=== PATIENT | female | born 1955 | race Caucasian/White ===

== ENCOUNTER 2022-08-15 08:18 | Observation (INO) ==
--- NOTE | 2022-07-24 09:14 | PAT Medication Instructions ---
Medication Instructions Date of Service July 24, 2022 Home Medications alprazolam 1 mg tablet (Xanax) 0.75 mg PO HS amlodipine 2.5 mg tablet 2.5 mg PO QAM aspirin 81 mg tablet,delayed release 81 mg PO QAM duloxetine 60 mg capsule,delayed release 60 mg PO QAM hydrocodone 10 mg-acetaminophen 325 mg tablet 1 tab PO HS PRN Pain meloxicam 15 mg tablet 15 mg PO QAM qftxauoucrpe-kmhnwvui-tesvgs tablet 1 tab PO QAM rosuvastatin 10 mg tablet 10 mg PO QAM turmeric 400 mg capsule 400 mg PO QAM valsartan 160 mg-hydrochlorothiazide 12.5 mg tablet 1 tab PO QAM vitamin E 1 dose PO QAM ASK your surgeon for instructions meloxicam 15 mg tablet 15 mg PO QAM STOP taking 2 weeks before surgery (or as soon as possible if surgery is within 2 weeks) turmeric 400 mg capsule 400 mg PO QAM vitamin E 1 dose PO QAM daeqxcqovjxh-hydczruc-hkzjhq tablet 1 tab PO QAM DO NOT take the morning of surgery valsartan 160 mg-hydrochlorothiazide 12.5 mg tablet 1 tab PO QAM Take morning of surgery With a small sip of water, OTHERWISE NOTHING TO EAT OR DRINK AFTER MIDNIGHT: amlodipine 2.5 mg tablet 2.5 mg PO QAM aspirin 81 mg tablet,delayed release 81 mg PO QAM duloxetine 60 mg capsule,delayed release 60 mg PO QAM (continue as normal unless told otherwise by surgeon) rosuvastatin 10 mg tablet 10 mg PO QAM Take evening before surgery alprazolam 1 mg tablet (Xanax) 0.75 mg PO HS hydrocodone 10 mg-acetaminophen 325 mg tablet 1 tab PO HS PRN Pain (if needed) Other Notes If you have any questions please call us at [phone] or [phone] or [phone] or [phone]
--- NOTE | 2022-07-26 14:46 | Anesthesiology Consultation ---
Date of Service July 26, 2022 Assessment & Plan (1) Encounter for pre-operative examination: - COVID screening: Per assessment on 07/26: No known COVID-19 positive contacts or current COVID-19 related symptoms. Travel screen negative. Patient vaccinated. At surgeon discretion if preop Covid testing being done. - Outpatient joint assessment: Pt currently scheduled for inpatient pathway. If surgeon requests review for outpatient joint pathway, patient is acceptable candidate for outpatient joint program from anesthesia standpoint. - Cardiology office visit (06/26/22): "Patient presents today for preoperative risk evaluation for scheduled left total knee replacement at [facility] for August 15, [address] Nunn. Patient with RCRI class 1 risk with 0.4% risk of MACE. Patient is unable to exert herself more than 4 Mets of activity. Is able to get up 1 flight of steps however causes shortness of breath for patient. Patient with atypical chest discomforts that are new over the last month. BP controlled.. Echocardiogram December 2020 with LVEF 60-64% with no wall motion abnormalities. No gross murmurs auscultated and patient is euvolemic on examination.. Patient had Lexiscan in 2020 due to shortness of breath, with no inducible ischemia noted, however patient is with now new chest discomfort in the last month or so. obutamine on back order.. Will proceed with a Lexiscan stress test for preoperative risk evaluation due to new chest discomforts and risk factors.. Return as scheduled in November, sooner if any needs arise and pending stress test results." Unremarkable stress test done 07/10/22* - Patient acceptable risk for surgery pending surgeon-ordered PCP preop evaluation (Dr. Uriel Menjivar, appt 07/30). Chart Review Chart Review: Patient seen in Pre Admission Testing Teaching & Discussion Pre-Anesthesia Teaching/Discussion Notes: Instructed NPO after midnight before surgery,except medications with 15 cc of water. Medication instructions provided according to the PAT guidelines. History Surgery Operation Date: 08/15/22 10:50 Proposed Procedures p Left Total Knee Arthroplasty - Douglas Nunn MD Height/Weight Height: 5 ft 8 in Weight: 97.7 kg Allergies Allergy/AdvReac Type Severity Reaction Status Date / Time No Known Allergies Allergy Verified 07/23/22 11:48 Medications Home Medications Medication Instructions Recorded Confirmed Last Taken alprazolam 1 mg tablet (Xanax) 0.75 mg PO HS 07/23/22 07/23/22 Unknown amlodipine 2.5 mg tablet 2.5 mg PO QAM 07/23/22 07/23/22 Unknown aspirin 81 mg tablet,delayed 81 mg PO QAM 07/23/22 07/23/22 Unknown release duloxetine 60 mg capsule,delayed 60 mg PO QAM 07/23/22 07/23/22 Unknown release hydrocodone 10 mg-acetaminophen 1 tab PO HS PRN Pain 07/23/22 07/23/22 Unknown 325 mg tablet meloxicam 15 mg tablet 15 mg PO QAM 07/23/22 07/23/22 Unknown sglwgeotkjds-rbgwodez-pemrxb tablet 1 tab PO QAM 07/23/22 07/23/22 Unknown rosuvastatin 10 mg tablet 10 mg PO QAM 07/23/22 07/23/22 Unknown turmeric 400 mg capsule 400 mg PO QAM 07/23/22 07/23/22 Unknown valsartan 160 1 tab PO QAM 07/23/22 07/23/22 Unknown mg-hydrochlorothiazide 12.5 mg tablet vitamin E 1 dose PO QAM 07/23/22 07/23/22 Unknown Past Medical History Medical History Anxiety Chronic back pain History of vertigo HLD (hyperlipidemia) HTN (hypertension) Obesity Sleep apnea CPAP (compliant) Spinal stenosis Exercise / Class Metabolic Activity III < 4 Walking/Shop/Light housework (one FS (no CP, + mild SOB)) Past Family History Family History Other No family history of adverse response to anesthesia Past Surgical History Surgical History History of colonoscopy History of foot surgery Rt History of tooth extraction Past Anesthesia History No Hx of Anesthesia Complications and No Family Hx of Anesthesia Complications History of PONV No Hx of PONV and No Hx of Motion Sickness Social History Smoking Status: Never smoker Do You Dip or Chew Tobacco: No Hx Alcohol Use: Yes alcohol intake frequency: holidays/special occasions only Hx Substance Use: No substance use type: does not use Review of Systems Patient denies chest pain, shortness of breath, fever, chills, cough, wheezing, palpitations. Physical Exam Vital Signs VITALS BP 142/79 P 69 TEMP 97.9 SP02 95%RA RESP 16 PHYSICAL Full cervical extension range of motion. Full TMJ range of motion. TMD 3 finger breaths Mallampati Score 2 Dentition: intact Lungs: clear throughout to auscultation Cardiac: regular rate and rhythm, no murmurs noted Spine: normal Carotid arteries: negative bruit Extremities: no edema Lab Results Anesthesia Preop Results Results Anesthesia Widget: WBC 6.30 K/ul (4.8-10.8) 07/26/22 Hgb 14.8 g/dl (12.0-16.0) 07/26/22 Hct 42.9 % (34.1-44.9) 07/26/22 Plt 195 K/uL (130-400) 07/26/22 Na 137 mmol/L (136-145) 07/26/22 K 3.9 mmol/L (3.5-5.1) 07/26/22 Cl 103 mmol/L (98-107) 07/26/22 CO2 27 mmol/L (21-32) 07/26/22 BUN 15 mg/dl (6-23) 07/26/22 Creat 0.66 mg/dl (0.6-1.2) 07/26/22 Glucose Level 91 mg/dl (70-99(Fasting)) 07/26/22 PT 11.1 Seconds (9.0-12.0) 07/26/22 PTT 24.0 Seconds (21.0-31.0) 07/26/22 INR 1.0 (0.9-1.1) 07/26/22 Urine Color Yellow 07/26/22 Urine Appearance Clear (Clear) 07/26/22 Urine pH 5.0 (4.5-7.5) 07/26/22 Urine Specific [place] 1.014 (1.000-1.030) 07/26/22 Urine Protein Negative (Negative) 07/26/22 Urine Glucose (UA) Negative (Negative) 07/26/22 Urine Ketones Negative (Negative) 07/26/22 Urine Blood Negative (Negative) 07/26/22 Urine Nitrite Negative (Negative) 07/26/22 Urine Bilirubin Negative (Negative) 07/26/22 Urine Urobilinogen Negative (Negative) 07/26/22 Urine Leukocyte Esterase Trace (Negative) H 07/26/22 Urine WBC (Auto) 1-5 /hpf (0-5) 07/26/22 Urine RBC (Auto) 0-4 /hpf (0-4) 07/26/22 Urine Hyaline Casts (Auto) 0 /lpf (0-5) 07/26/22 Urine Epithelial Cells (Auto) >30 /lpf (0-5) H 07/26/22 Urine Bacteria (Auto) Negative (Negative) 07/26/22 Blood Type B Positive 07/26/22 Antibody Screen NEGATIVE 07/26/22 Testing Electrocardiogram Date: 05/30/22 NSR at 74bpm. LAD. Chest X-Ray Date: 07/26/22 FINDINGS: There is mild elevation of the right hemidiaphragm. Lungs are clear. There is no pneumothorax or pleural effusion. Moderate cardiomegaly is noted. Mediastinal contours are normal. There is no evidence for pulmonary edema. IMPRESSION: No acute cardiopulmonary findings. Cardiomegaly. Echocardiogram Date: 01/04/21 LVEF 60.9%. No regional motion abnormality. No significant valvular disease. Stress Test Date: 07/10/22 Type: nuclear Lexiscan nuclear cardiac stress test negative for ischemia. LVEF calculated at above 70%. 77% MPHR. COVID-19 Risk Screen Screening Information COVID-19 Screen Date: 07/26/22 Exposure 21 Days Family/Household +COVID Last 21 Days: No Exposure 10 Days Any COVID Exposure Last 10 Days: No Symptoms Last 10 Days Experienced COVID Sx Last 10 Days: No + COVID 0-90 Days COVID + in Last 0-90 Days: No
--- NOTE | 2022-08-07 15:03 | History & Physical Report ---
Date of Service August 07, 2022 Assessment & Plan (1) Left knee DJD: Plan: Postoperative prescriptions for Percocet and Coumadin will be provided at discharge from the hospital. Anticipate discharge to home with home health services. Preoperative visit with her PCP has been scheduled. PDMP was checked and there are no concerning findings. The patient is aware of COVID-19 risks associated with surgery. She is currently asymptomatic of any COVID-19 symptoms. Postoperative followup appointment has been made for 08/30 at 10:30 a.m. for staple removal. Anticipate one night stay in the hospital. She already has a pipeline controller, and walker. She also has a cane. History of Present Illness Chief Complaint: Left knee DJD Primary Care Provider: NO PCP This 67-year-old female presents with her , for her preoperative history and physical. She is scheduled to undergo a left knee total knee arthroplasty o n 08/15/2022. The patient has had a longstanding history of left knee pain. It has been ongoing for years. She did well with viscosupplementation injections for many years. Over the last year, they have not helped. The pain has become worse. She has difficulty with inclines and stairs. Pain is worse with weightbearing. It is affecting her ADLs. She notes grinding in the knee. She has also tried activity modification as well as oral Tylenol and prescription NSAIDs without improvement. No numbness or tingling. She denies any locking. She elects to proceed with surgical intervention in hopes of improving her pain and function. Preoperative imaging has been obtained. Allergies Allergy/AdvReac Type Severity Reaction Status Date / Time No Known Allergies Allergy Verified 07/23/22 11:48 Home Medications Medication Instructions Recorded Confirmed Type alprazolam 1 mg tablet (Xanax) 0.75 mg PO HS 07/23/22 07/23/22 History amlodipine 2.5 mg tablet 2.5 mg PO QAM 07/23/22 07/23/22 History aspirin 81 mg tablet,delayed 81 mg PO QAM 07/23/22 07/23/22 History release duloxetine 60 mg capsule,delayed 60 mg PO QAM 07/23/22 07/23/22 History release hydrocodone 10 mg-acetaminophen 1 tab PO HS PRN Pain 07/23/22 07/23/22 History 325 mg tablet meloxicam 15 mg tablet 15 mg PO QAM 07/23/22 07/23/22 History qyviqnnoubgv-mbrsjloz-tmfcep tablet 1 tab PO QAM 07/23/22 07/23/22 History rosuvastatin 10 mg tablet 10 mg PO QAM 07/23/22 07/23/22 History turmeric 400 mg capsule 400 mg PO QAM 07/23/22 07/23/22 History valsartan 160 1 tab PO QAM 07/23/22 07/23/22 History mg-hydrochlorothiazide 12.5 mg tablet vitamin E 1 dose PO QAM 07/23/22 07/23/22 History Past Med/Surg History Medical History Anxiety Chronic back pain History of vertigo HLD (hyperlipidemia) HTN (hypertension) Obesity Sleep apnea CPAP (compliant) Spinal stenosis Surgical History History of colonoscopy History of foot surgery Rt History of tooth extraction Family History (Updated 08/07/22 @ 15:00 by Prieto Lance PA-C) Mother Heart disease Myocardial infarction Sister Heart disease Myocardial infarction Father Heart disease Grandmother Myocardial infarction Other No family history of adverse response to anesthesia Social History (Updated 08/07/22 @ 14:58 by Prieto Lance PA-C) Smoking Status: Never smoker Second Hand Exposure: No; Hx Alcohol Use: Yes Hx Substance Use: No Preferred Language: Haitian Communication Ability: Effective Collector Required: No Beliefs That Will Affect Care: None marital status: Current Living Situation: Spouse Feels Safe at Home: Yes Assistive Devices: CPAP and Glasses Review of Systems Review of Systems: All systems reviewed & are unremarkable except as noted in HPI & below A total of 10 systems were reviewed. Physical Exam Physical Exam: Vitals: Height 171.6 cm, weight 99 kg, BMI 33.6, temperature 36.4, BP 116/82, pulse 64, respirations 20, and O2 sat 96% on room air. General: Well-developed, well-nourished elderly female in no acute distress. Sitting in a chair. Alert and oriented. Skin: Warm and dry with good turgor. No rashes or lesions. No ecchymosis or erythema. HEENT: Normocephalic, atraumatic. Eyes: PERRLA, EOMI. Nares and oropharynx exams deferred due to COVID precautions. Heart: RRR. No MGR. Lungs: Clear to auscultation bilaterally. No crackles, rhonchi or wheezing. Good air movement. Abdomen: Obese. Bowel sounds present x4. Soft and nontender. No organomegaly. No masses. Musculoskeletal: Left knee evaluation reveals no intra-articular effusion. No redness or warmth. She has full terminal extension. Flexion to greater than 110 degrees. Varus malalignment. Crepitus is palpable with motion. No defect in the patellar tendon or quadriceps tendon. She has medial joint line discomfort with palpation and peripatellar discomfort with palpation. There is also some lateral joint line discomfort, but it is less than the other compartments. Significant stiffness is noted to the patellofemoral joint. Ambulating today with an antalgic gait. Stable collateral ligaments. Neurologic: Gross sensation is intact across both lower extremities by soft touch. Peripheral pulses are 2+. Results & Data Results & Data ([facility]) Diagnostic Findings Radiographic imaging previously obtained shows end-stage DJD of the medial and patellofemoral compartments. Patellofemoral compartment is worst. Periarticular osteophytes, subchondral sclerosis and joint space narrowing are all present. Code Status & VTE Plan VTE Prophylaxis Plan VTE Prophylaxis will be ordered: Yes
[~2022-08-15 08:18] MED LIST: BUPIVACAINE 0.25% 30 ML VIAL ONE; BUPIVACAINE 0.5 % 5 MG/1 ML PF 10ML VIAL ONE; DEXAMETHASONE SOD INJ 4 MG/ML VIAL ONE; EPINEPHrine INJ 1 MG/ML AMP ONE; LR 500ML BOLUS, THEN 15ML/HR IV SCH; LR 60ML/HR IV SCH; ROPIVACAINE 0.5% HCL/PF 150 MG, BUPIVACAINE 0.75% MPF 20 ML, EPINEPHrine 0.15 MG, Ketor... INFIL SCH; TRANEXAMIC ACID 1,000 MG **IV Pre-op IV SCH; ceFAZolin 2000MG 2,000 MG/15 ML SYR IV SCH
--- NOTE | 2022-08-15 08:23 | History & Physical Bridge Note ---
Date of Service August 15, 2022 History & Physical Bridge Note I have examined the patient, reviewed the History & Physical and in the interval since the performance of the History & Physical I have noted the following changes of clinical significance:consent and site verified. no changes noted
--- NOTE | 2022-08-15 09:02 | Discharge Summary (DS) ---
DATE OF ADMISSION: 08/15/2022 DATE OF POTENTIAL DISCHARGE: 08/16/2022 CHIEF COMPLAINT: Left knee pain. HISTORY OF PRESENT ILLNESS: The patient is admitted for elective left total knee replacement. To anne-marie robbins, her hospital course has been per protocol. ALLERGIES: None. HOME MEDICATIONS: Include alprazolam, amlodipine, aspirin, duloxetine, hydrocodone, meloxicam, multi vitamin, rosuvastatin, turmeric, valsartan, vitamin E. PAST MEDICAL HISTORY: Remarkable for anxiety, back pain, vertigo, hyperlipidemia, hypertension, obes ity, sleep apnea, CPAP compliant, spinal stenosis. PAST SURGICAL HISTORY: Remarkable for colonoscopies, foot surgery, tooth extractions. FAMILY HISTORY: Remarkable for mother with heart disease, myocardial infarction. Sister with same. Father, heart disease. SOCIAL HISTORY: Reveals that she does not smoke, p.r.n. alcohol use socially. Lives with her spouse . Uses CPAP and glasses. ASSESSMENT AND PLAN: Status post left total knee replacement. Continue care pathway. Discharge to home tomorrow. Job ID: [id number]
[2022-08-15] MEDS ORDERED: MIDAZOLAM HCL 1 MG/ML 2ML VIAL ONE ×2 (09:19→11:15)
[2022-08-15] MEDS ORDERED: fentaNYL citrate 100 MCG/2 ML VIAL ONE (09:19)
[2022-08-15] MEDS ORDERED: PROPOFOL IV EMULSION 10 MG/ML 20 ML VIAL IV ONE ×2 (09:21→11:31)
[2022-08-15] MEDS ORDERED: ONDANSETRON INJ 2 MG/ML 2 ML VIAL ONE (09:21)
[2022-08-15] MEDS ORDERED: LIDOCAINE 2% MPF LOCAL 5 ML VIAL INFIL ONE (09:21)
[2022-08-15] MEDS ORDERED: fentaNYL citrate 100 MCG/2 ML VIAL IV PRN (09:49)
[2022-08-15] MEDS ORDERED: PROMETHAZINE HCL 6.25 MG in SODIUM CHLORIDE 0.9% 50 ML IV PRN (09:49)
[2022-08-15] MEDS ORDERED: ATROPINE SULFATE 0.1 MG/ML 10ML SYR IV PRN (09:49)
[2022-08-15] MEDS ORDERED: ePHEDrine sulfate 50 MG/ML AMP IV PRN (09:49)
[2022-08-15] MEDS ORDERED: ONDANSETRON INJ 2 MG/ML 2 ML VIAL IV PRN ×2 (09:49→13:45)
[2022-08-15] MEDS ORDERED: ORTHO JOINT ANESTHETIC ONE (10:43)
[2022-08-15] MEDS ORDERED: ePHEDrine sulfate 50 MG/ML AMP ONE (11:30)
[2022-08-15] MEDS ORDERED: PHENYLEPHRINE HCL 10 MG/ML VIAL ONE (11:30)
--- NOTE | 2022-08-15 12:34 | Post Operative Brief Note ---
Immediate Post Op Note v1 Date of Surgery August 15, 2022 Pre & Post Diagnosis Operation Date: 08/15/22 10:40 Pre-Op Diagnosis: Left Knee Degenerative Joint Disease Post-Op Diagnosis: Left Knee Degenerative Joint Disease I identified the patient and participated in the time-out.: Yes Procedure Operation Date: 08/15/22 10:40 Actual Procedures p Left Total Knee Arthroplasty(Left) - Douglas Nunn MD Surgeon Douglas Nunn MD Detonator Maker Raman/Casi Estimated Blood Loss 25 Findings Consistent with Post-Op Diagnosis
--- NOTE | 2022-08-15 12:46 | Operative Report ---
Post Operative Report Pre & Post Diagnosis Operation Date: 08/15/22 10:40 Pre-Op Diagnosis: Left Knee Degenerative Joint Disease Post-Op Diagnosis: Left Knee Degenerative Joint Disease I identified the patient and participated in the time-out.: Yes Procedure Operation Date: 08/15/22 10:40 Actual Procedures p Left Total Knee Arthroplasty(Left) - Douglas Nunn MD Surgeon NOE Nunn MD Wax Molder Raman/Casi CARLOS Estimated Blood Loss 25 Findings Consistent with Post-Op Diagnosis see operative report Specimens See operative report Drains none Complications none Disposition Accompanied Patient To Recovery: Yes Indications This 67 year old female presented the office with complaints of persisting left knee pain. She had tried conservative care measures without improvement. She elected to proceed with surgical intervention after being educated about potential risks and outcomes. Preoperative imaging was obtained. Description of Procedure Patient was administered a spinal anesthetic and then taken to the operating room where she was given sedation. She was prepped and draped in the usual sterile fashion. Please see Dr. Nunn's operative report for specifics of the procedure. I was present for the entire case from initial patient positioning through final wound closure. Assistance was provided in tissue retraction, hemostasis, trial implant placement, final implant placement, and final wound closure. Patient was taken to the recovery room in satisfactory condition. I attest to the content of the Intraoperative Record and any orders documented therein. Any exceptions are noted below.
--- NOTE | 2022-08-15 13:04 | Anesthesiology Progress Note ---
Date of Service August 15, 2022 Anesthesia Post Procedure Vital Signs Vital Signs: Temp Pulse Pulse Resp BP Pulse Ox O2 Del Method 08/15/22 12:42 36.7 C 94 H 16 137/70 99 Room Air 08/15/22 09:01 36.6 C 75 20 162/91 H 97 Room Air Pain Intensity Left Knee: Pain Intensity: 4 Transfer of Care Handoff Completed per policy Notes Mental Status: alert / awake / arousable Patient Amnestic to Procedure: Yes Nausea / Vomiting: adequately controlled Pain: adequately controlled Airway Patency, RR, SpO2: stable & adequate BP & HR: stable & adequate Hydration State: stable & adequate Neuraxial Anesthesia: was administered and sensory block is resolving Anesthetic Complications: no major complications apparent and Pt Satisfied with anesthetic care
--- NOTE | 2022-08-15 13:10 | Progress Notes ---
SUBJECTIVE: Postop check status post left total knee replacement. The patient is doing well. Denie s chest pain, shortness of breath, fever, chills, nausea, vomiting or headache. VITAL SIGNS: Stable. She is afebrile. X-rays postoperative look excellent. The spinal block is wearing off nicely. She already has active extension of her ankle and her toes, and active flexion of her ankle and toes. She has quad function as well. ASSESSMENT: Doing well. Continue care pathway. Mobilize to tolerance CARRIE. Coumadin this evening. Job ID: [id number]
--- NOTE | 2022-08-15 13:25 | Operative Report (OR) ---
DATE OF PROCEDURE: 08/15/2022 SURGEON: Douglas Nunn MD CELL EFFICIENCY SUPERVISOR: Raman. SECOND CELL EFFICIENCY SUPERVISOR: Prieto Lance PA-C PREOPERATIVE DIAGNOSIS: Osteoarthritis, left knee. POSTOPERATIVE DIAGNOSIS: Osteoarthritis, left knee. OPERATION PERFORMED: Cemented left total knee replacement. SUMMARY OF IMPLANTS: Size 3 left femur, posterior cruciate substituting size 3 mobile bearing tray, size 3 x 10 mm insert, size 41 patella, 2 bags of Palacos G cement. BONE PATHOLOGY: Pending. DVT prophylaxis per protocol. PERIOPERATIVE SITUATION: Medically cleared female with intractable knee pain, has failed conservativ e management for years. At this point in time, has end-stage disease in the patellofemoral joint and the medial compartment, wants to proceed with total knee replacement. DESCRIPTION OF PROCEDURE: After patient was appropriately identified, site verified, consent verified, antibiotics were confirm ed as being given, TXA given, the left lower extremity was prepped and draped in usual routine fashio n. Tourniquet was inflated to 300 mmHg with exsanguination of the limb with a rubber Esmarch bandage for a total of 56 minutes. Midline approach was utilized. Parapatellar arthrotomy performed. Syno vectomy completed. Osteophytes resected. Distal femur entered. Cruciates resected. Tibia subluxate d, menisci resected. Distal femur then resected 12 mm. Proximal tibia then resected 4 mm. The tensi on gap was excellent. Femur was sized between a 4 and a 3, it was measured 4 cut 3. There was some slight just at the touch of the cortex anteriorly. No major notching. Flexion gap was then checked, it was excellent. Posterior capsule was then injected with the Orthomi x. The box cut was then made. This required some minor revision to get it seat, and once that was d one, it fit well. The tibia was then broached and reamed to a size 3, 10 spacer fit well and tracked well, and had exce llent mid range stability. The patella was then resected leaving 14 mm and a 41 button applied. All trial implants were then removed. The wound was irrigated with Betadine and Pulsavac and the perman ent cemented into position tibia, femur, and patella in that order, and then once that was done at 12 minutes, tourniquet deflated. Minor bleeding points controlled with electrocautery. There was mini mal bleeding, roughly 25 mL estimated. At 14 minutes, the knee was flexed. Minor cement removal requ ired and the wound irrigated with Pulsavac and Betadine and then the permanent liner seated. The kne e reduced and then closed at 40 degrees of flexion with #2 Vicryl, 2-0 Vicryl, and stainless steel cl ips. Appropriate dressing applied and the patient was transferred to recovery room in satisfactory c ondition having tolerated the procedure well. Job ID: [id number]
--- NOTE | 2022-08-15 13:36 | XRay Report ---
XR knee LT 1 or 2V routine CLINICAL HISTORY: S/P L TKA TECHNIQUE: 2 views of the left knee were obtained. Comparison: Comparison is made to knee radiographs 06/18/2022 FINDINGS: Patient is status post total knee arthroplasty with expected postsurgical changes including soft tiss ue swelling and subcutaneous emphysema. No periarticular lucency or hardware fracture is seen. IMPRESSION: Expected postoperative appearance status post placement of total knee arthroplasty. ACT 112: Negative or not required by law. Electronically signed by: Brian Aparicio M.D. 08/15/2022 1:35 PM
[2022-08-15] MEDS ORDERED: NALOXONE HCL 0.4 MG/1 ML VIAL/CARP IV PRN (13:45)
[2022-08-15] MEDS ORDERED: bisacodyL 10 MG SUPP PR PRN (13:45)
[2022-08-15] MEDS ORDERED: MAGNESIUM HYDROXIDE SUSP 30 ML UDC PO PRN (13:45)
[2022-08-15] MEDS ORDERED: HYDROmorphone INJ 0.5 MG/0.5 ML SYR IV PRN (13:45)
[2022-08-15] MEDS ORDERED: METOCLOPRAMIDE HCL INJ 5 MG/ML 2 ML VIAL IV PRN (13:45)
[2022-08-15] MEDS ORDERED: ALUMINUM/MAGNESIUM SUSP 30 ML UDC PO PRN (13:45)
[2022-08-15] MEDS ORDERED: diphenhydrAMINE 50 MG/ML VIAL IV PRN (13:45)
[2022-08-15] MEDS ORDERED: SODIUM CHLORIDE 0.9% 1000ML 1,000 ML IV SCH (13:45)
[2022-08-15] MEDS ORDERED: ORTHO WARFARIN NOMOGRAM SCH (14:00)
[2022-08-15] MEDS ORDERED: Nursing to Pharmacy Communication SCH (16:00)
[2022-08-15] MEDS ORDERED: WARFARIN SOD 5 MG TAB PO ONE (16:00)
[2022-08-15] MEDS: ACETAMINOPHEN 500 MG TAB PO SCH ×2 (16:04→20:14)
[2022-08-15] MEDS: KETOROLAC TROMETHAMINE 15 MG/ML VIAL IV SCH ×2 (16:04→19:23)
[2022-08-15] MEDS: FERROUS GLUCONATE 324 MG TAB PO SCH (16:43)
[2022-08-15] MEDS: ASCORBIC ACID 500 MG TAB PO SCH (16:45)
[2022-08-15] MEDS: oxyCODONE HCL IR 5 MG TAB (IMMEDIATE RELEASE) PO PRN (18:42)
[2022-08-15] MEDS ORDERED: TRANEXAMIC ACID / 0.7% NACL 1,000 MG/100 ML BAG IV SCH (19:00)
[2022-08-15] MEDS: ceFAZolin 2000MG 2,000 MG/15 ML SYR IV SCH (19:23)
[2022-08-15] MEDS: DOCUSATE SODIUM 100 MG CAP PO SCH (20:15)
[2022-08-15] MEDS ORDERED: ALPRAZolam 0.25 MG TABLET PO SCH (21:00)
[2022-08-15] MEDS ORDERED: SENNA 8.6 MG TAB PO SCH (21:00)
[2022-08-16] MEDS: oxyCODONE HCL IR 5 MG TAB (IMMEDIATE RELEASE) PO PRN ×2 (00:18→09:14)
[2022-08-16] MEDS: KETOROLAC TROMETHAMINE 15 MG/ML VIAL IV SCH ×2 (03:03→09:32)
[2022-08-16] MEDS: ceFAZolin 2000MG 2,000 MG/15 ML SYR IV SCH (03:03)
[2022-08-16] MEDS: ACETAMINOPHEN 500 MG TAB PO SCH (06:29)
--- NOTE | 2022-08-16 07:18 | Progress Notes ---
SUBJECTIVE: Postop day #1, status post left total knee replacement. The patient is up in bed, doing her incentive spirometer exercises. She denies chest pain, shortness of breath, fever, chills, nausea, vomiting, or headache. OBJECTIVE: Vital signs are stable. She is afebrile. On neurovascular check, femoral sciatic nerve is normal. Can do a solid straight leg raise. Calves are nontender. Wound dressing clean, dry, and intact. LABORATORY DATA: A.m. labs are pending. ASSESSMENT AND PLAN: Doing well. Discharged home today after PT/OT. Coumadin dose per nomogram pedro galvin before discharge. Job ID: [id number]
[2022-08-16] MEDS ORDERED: dexAMETHasone 10 MG in SYRINGE 0 ML IV SCH (08:00)
[2022-08-16 08:33] LABS: Hematocrit (blood only) 34.8 % (34.1-44.9); Hemoglobin 11.9 g/dl (12.0-16.0); Mean Corpuscular Hemoglobin 32.3 pg (25.0-34.0); Mean Corpuscular Hgb Conc 34.2 g/dL (32.0-36.0); Mean Corpuscular Volume 94.6 fL (80.0-100.0); Platelet Count 184 K/uL (130-400); RDW Coefficient of Variation 12.6 % (11.5-14.5); RDW Standard Deviation 43.8 fL (36.4-46.3); Red Blood Count 3.68 M/uL (3.93-5.22); White Blood Count 13.35 K/ul (4.8-10.8)
[2022-08-16 08:42] LABS: INR 1.1 (0.9-1.1); Prothrombin Time 11.5 Seconds (9.0-12.0)
[2022-08-16] MEDS ORDERED: amLODIPine BESYLATE 5 MG TAB PO SCH (09:00)
[2022-08-16] MEDS ORDERED: ASPIRIN 81 MG ECTAB PO SCH (09:00)
[2022-08-16] MEDS ORDERED: VALSARTAN/HCTZ 160/12.5MG TAB PO SCH (09:00)
[2022-08-16] MEDS ORDERED: MULTIVITAMIN TAB PO SCH (09:00)
[2022-08-16] MEDS ORDERED: ROSUVASTATIN CALCIUM 10 MG TAB PO SCH (09:00)
[2022-08-16 09:09] LABS: BUN Creatinine Ratio 34.3 (10-20); Calcium 9.6 mg/dl (8.5-10.1); Creatinine Clr Calc Pharmacy 99.1 ml/min; Est GFR (African American) 105.4 ml/min; Potassium 4.3 mmol/L (3.5-5.1)
[2022-08-16] MEDS: ASCORBIC ACID 500 MG TAB PO SCH (09:32)
[2022-08-16] MEDS: FERROUS GLUCONATE 324 MG TAB PO SCH (09:33)
[2022-08-16] MEDS: DOCUSATE SODIUM 100 MG CAP PO SCH (09:33)
[2022-08-16] MEDS: DULoxetine HCL 60 MG CAP PO SCH ×2 (09:34→10:08)
[2022-08-16] MEDS ORDERED: hydroCHLOROthiazide 25 MG TAB PO SCH (10:00)
[2022-08-16] MEDS ORDERED: VALSARTAN 80 MG TAB PO SCH (10:00)
[2022-08-16] MEDS ORDERED: Nursing to Pharmacy Communication SCH (10:30)
[2022-08-16] MEDS ORDERED: WARFARIN SOD 5 MG TAB PO ONE (10:45)
--- NOTE | 2022-08-16 11:53 | Orthopedic Progress Note ---
Date of Service August 16, 2022 Assessment & Plan (1) S/P total knee replacement using cement: Plan: Patient's dressings were changed by me. MYRA hose were also applied. She will leave these in place until Saturday and then can have them changed by the home health staff if needed. Written discharge instructions were provided. Prescriptions for Percocet, Zofran, and Coumadin have been sent to her pharmacy. She will take Coumadin 4 mg daily through the weekend and have her blood checked on Saturday. Importance of wearing the knee immobilizer today and tomorrow was discussed. She will discontinue its use on Saturday. Follow-up in the office in 2 weeks as scheduled for staple removal. Admission and Anticipated Discharge Date Admission Date: August 15, 2022 Subjective This 67-year-old female seen today in her room. Her is at bedside. She states she did well overnight. She currently has minimal pain. She states it is tolerable as long as she is keeping up with her Percocet doses. She denies any chest pain, shortness of breath, nausea, vomiting, or abdominal pain. Her only current complaint is discomfort across the proximal thigh, at the area of her previous surgical tourniquet. She has been out of bed. She is already eaten breakfast. She has not participated in OT or PT yet. She would like to go home today. Review of Systems Review of Systems: Unchanged from yesterday. Physical Exam Physical Exam: General: Well-developed, well-nourished, elderly female, in no acute distress. Laying in bed. Alert and oriented. Conversive. Skin: Warm dry with good turgor. No rashes. Postsurgical dressings are in place. Upon removal, she has expected postoperative edema and ecchymosis of the left knee. Jorge Luis are in place. Wound edges are well approximated. She has no active bleeding. Surgical dressings did have a small amount of dried blood on the inner dressings. Musculoskeletal: Patient has intact motor function to the hip, knee, ankle, and toes. She is able to perform straight leg raise. Full terminal extension. Flexion to around 60 degrees. Neurologic: Gross sensation is intact across the left leg by soft touch. Peripheral pulses are 2+. Results & Data ([facility]) Vital Signs (Past 12 Hours) Vital Signs Temp Pulse Pulse Resp BP Pulse Ox O2 Del Method 08/16/22 10:28 37 C 68 75 20 116/69 93 08/16/22 07:44 37 C 68 20 116/69 93 Room Air 08/16/22 03:02 36.8 C 75 14 114/61 92 Room Air Laboratory Results CBC obtained today shows a white count of 13.3. H&H of 11.9 and 34.8. INR of 1.1. PRP is unremarkable.
== END 2022-08-16 12:15 | disposition home health service (06) ==
LOC: ASU 08:18 → 3E 08:18